=== PATIENT | female | born 1970 | race Two or more races ===

== ENCOUNTER 2025-02-26 21:10 | Emergency (ER) | payer MEDICAID, SELFPAY ==
[2025-02-26 21:10] VITALS: BMI 29.3
[2025-02-26 21:15] VITALS: BP 211/105; PULSE 87; RESP 20; TEMP 36.9; O2SAT 99
--- NOTE | 2025-02-26 21:19 | EKG_ITS ---
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
--- NOTE | 2025-02-26 21:56 | XR_ITS ---
Examination: PA chest single view TECHNIQUE: Upright PA chest single view Date and time: February 26, 2025, 10:11 PM INDICATIONS: Chest pain today FINDINGS: Normal heart size. Lungs are clear. The osseous structures are demineralized IMPRESSION: No active disease
[2025-02-26 22:22] VITALS: BP 211/105; PULSE 87
[2025-02-26] MEDS: METOPROLOL TARTRATE 25 MG TABLET PO (22:22)
[2025-02-26] MEDS: Aspirin 325 MG TABLET PO (22:22)
[2025-02-26] MEDS: DIAZEPAM 5 MG TABLET PO (22:22)
[2025-02-26 22:55] LABS: Basophils % (Auto) 0 % (0-2.5); Eosinophils # (Auto) 0.1 Thou/mm3 (0.0-0.5); Eosinophils % (Auto) 1 % (0-10); Hematocrit 43.6 % (36.0-46.0); Hemoglobin 14.7 g/dL (12.0-16.0); Immature Granulocytes % (Auto) 0 % (0-0); Immature Granulocytes Auto 0.04 Thou/mm3 (0.00-0.00); Lymphocytes # (Auto) 1.3 Thou/mm3 (1.0-4.8); Lymphocytes % (Auto) 15 % (10-50); Mean Corpuscular HGB Conc 33.7 g/dl (31.0-37.0); Mean Corpuscular Hemoglobin 29.2 pg (25.0-35.0); Mean Corpuscular Volume 87 fL (80-100); Monocytes # (Auto) 0.6 Thou/mm3 (0.0-0.8); Monocytes % (Auto) 7 % (0-12); Neutrophils # (Auto) 6.9 Thou/mm3 (1.8-7.7); Neutrophils % (Auto) 77 % (37-80); Nucleated Red Blood Cell % 0 /100 WBC (0); Platelet Count 225 Thou/mm3 (140-440); RDW Standard Deviation 40.8 fL (36.4-46.3); Red Blood Count 5.04 Miln/mm3 (4.00-5.20); White Blood Count 8.9 Thou/mm3 (3.6-11.0)
[2025-02-26 23:17] LABS: Alanine Aminotransferase 45 U/L (10-49); Albumin, Serum 4.8 gm/dL (3.5-5.0); Albumin/Globulin Ratio 1.8 (1.2-2.2); Alkaline Phosphatase 102 U/L (46-116); Anion Gap 10 (7-16); Aspartate Amino Transferase 40 U/L (0-34); BUN/Creatinine Ratio 20 Ratio (12-20); Bilirubin,Total 1.7 mg/dL (0.3-1.2); Blood Urea Nitrogen 12 mg/dL (9-23); Calcium 10.2 mg/dL (8.3-10.6); Calcium (Corrected) 10.2 mg/dL (8.5-10.1); Carbon Dioxide 27.3 mMol/L (20.0-31.0); Chloride 107 mMol/L (98-107); Creatinine (Component) 0.6 mg/dL (0.6-1.3); Estimated Creatinine Clearance 116.1 mL/min (>60); Globulin 2.6 gm/dL (2.3-3.5); Glucose 118 mg/dL (74-106); Osmolality,Calculated 287 (275-295); Partial Thromboplastin Time 28.4 Seconds (22.0-36.0); Potassium 3.3 mMol/L (3.4-5.1); Prothrombin Time 10.8 Seconds (9.0-12.2); Sodium 144 mMol/L (136-145); Total Protein 7.4 gm/dL (5.7-8.2); Troponin I < 0.020 ng/mL (0.0-0.045); eGFR > 60 See Note
[2025-02-27 01:24] VITALS: BP 179/85; PULSE 50; RESP 18; TEMP 36.8; O2SAT 96
[2025-02-27 01:43] LABS: Troponin I < 0.020 ng/mL (0.0-0.045)
--- NOTE | 2025-02-27 04:17 | PD.EDSKIN ---
ED Skin Abcess FB-RME/HPI General Chief complaint: General Adult/Misc Complain Stated complaint: SOB AFTER BEE STING/ BP 210/120 Time Seen by Provider: 02/26/25 21:55 Arrival date/time: 02/26/25 21:10 54F with history of anxiety presents to ED with SOB and elevated BP after being stung by a bee 2 hours ago. Patient also had some CP earlier, but not while in ED. Patient denies throat swelling, rash, and itching. Limitations: no limitations Related Data Allergies Allergy/AdvReac Type Severity Reaction Status Date / Time NKA Allergy Unknown Uncoded 05/08/03 19:16 No Known Allergies Allergy Unknown Uncoded 12/12/05 14:31 Review of Systems Review of Systems Systems Reviewed: All systems reviewed, normal except as documented Constitutional Constitutional: Reports system reviewed and no additional complaints, except as documented, Denies fever(s) and Denies headache(s) ENT Ears, Nose, Mouth, and Throat: Denies disequilibrium and Denies headache(s) Cardiovascular Cardiovascular: Reports system reviewed and no additional complaints, except as documented, Reports as per HPI, Reports chest pain and Reports dyspnea Respiratory Respiratory: Reports system reviewed and no additional complaints, except as documented, Denies cough and Reports dyspnea Gastrointestinal Gastrointestinal: Reports system reviewed and no additional complaints, except as documented, Denies abdominal pain, Denies nausea and Denies vomiting Neurologic Neurologic: Reports system reviewed and no additional complaints, except as documented, Denies confusion, Denies disequilibrium and Denies headache(s) Psychiatric Psychiatric: Denies confusion Past Medical History Social History SMOKING STATUS: Never smoker ED Exam General Limitations: Present no limitations General appearance: Present alert, in no apparent distress and anxious Head Head exam: Present atraumatic Eye Eye exam: Present normal appearance, PERRL and EOMI ENT ENT exam: Present normal exam, normal oropharynx and mucous membranes moist Neck Neck exam: Present normal inspection, full ROM and trachea midline Chest Chest inspection: Present normal inspection and symmetric chest wall rise Respiratory Respiratory exam: Present normal lung sounds bilaterally Cardiovascular Cardiovascular exam: Present regular rate, normal rhythm and normal heart sounds Abdominal Exam Abdominal exam: Present soft and normal bowel sounds Extremities Exam Extremities exam: Present normal inspection and full ROM Back Exam Back exam: Present normal inspection and full ROM Neurological Exam Neurological exam: Present alert, oriented X3 and CN II-XII intact Psychiatric Psychiatric exam: Present normal affect and normal mood Skin Skin exam: Present warm, dry, intact and normal color Course Quality Measures none Orders Category Date Time Status EKG (ED ONLY) *Do not use* NOW Care 02/26/25 21:19 Completed EKG (ED Only) Stat Exams 02/26/25 21:19 Draft XR chest 1V portable Stat Exams 02/26/25 21:56 Completed CBC Stat Lab 02/26/25 22:21 Completed Comprehensive Metabolic Panel Stat Lab 02/26/25 22:21 Completed Partial Thromboplastin Time Stat Lab 02/26/25 22:21 Completed Prothrombin Time with INR Stat Lab 02/26/25 22:21 Completed Troponin I Stat Lab 02/26/25 22:21 Completed Troponin I Stat Lab 02/27/25 00:50 Completed Aspirin Med 02/26/25 21:56 Discontinued 325 mg PO X1 ONE Diazepam [Valium] Med 02/26/25 21:56 Discontinued 5 mg PO X1 ONE Metoprolol Tartrate [Lopressor] Med 02/26/25 21:56 Discontinued 25 mg PO X1 ONE Vital Signs Vital signs: Vital Signs Temperature 98.4 F 02/26/25 21:15 Pulse Rate 87 02/26/25 21:15 Respiratory Rate 20 02/26/25 21:15 Blood Pressure 211/105 H 02/26/25 21:15 Pulse Oximetry (%) 99 02/26/25 21:15 Oxygen Delivery Method Room Air 02/26/25 21:15 O2 at 99% on RA and WNLs Skin / Abscess / Foreign Body MDM Narrative MDM Narrative:: 54F with history of anxiety presents to ED with SOB and elevated BP after being stung by a bee 2 hours ago. Patient also had some CP earlier, but not while in ED. Patient denies throat swelling, rash, and itching. Physical exam reveals normal WOB. RRR. Patient is afebrile, alert, but anxious. EKG is NSR with minimal non-specific ST depression. No leukocytosis. CMP unremarkable. Trop 2x normal. CXR normal. Valium improved symptoms. 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 Patient data External records reviewed:: [facility] previous records Clinical information provided by:: patient Social determinants that could affect healthcare access:: mental health Patient has the following chronic illnesses:: anxiety How is presenting disease/condition affected by chronic disease/condition?: exacerbated by Evaluation data The following diagnostics were reviewed and interpreted by me:: lab results, radiology exam(s) and EKG tracing(s) Lab and/or radiology exams considered but not ordered:: ordered Interpretation Summary: above Medications / Prescriptions Medications or Prescriptions considered but not ordered:: ordered Medication administrations:: Medication Administration History Discontinued Medications Aspirin (Aspirin 325 Mg Tablet) 325 mg PO X1 ONE Stop: 02/26/25 21:57 Last Admin: 02/26/25 22:22 Dose: 325 mg Documented By: ISA Diazepam (Diazepam 5 Mg Tablet) 5 mg PO X1 ONE Stop: 02/26/25 21:57 Last Admin: 02/26/25 22:22 Dose: 5 mg Documented By: ISA Metoprolol Tartrate (Metoprolol Tartrate 25 Mg Tablet) 25 mg PO X1 ONE Stop: 02/26/25 21:57 Last Admin: 02/26/25 22:22 Dose: 25 mg Documented By: ISA above Consultations Consultation(s) initiated? (list below): No Diagnosis Skin/Abscess Differential Diagnosis: abscess of skin or subcutaneous tissue, viral exanthem, dermatophytosis, urticaria, herpes zoster, allergic reaction to drug, cellulitis, eczema, insect bites, impetigo, contact dermatitis and other (Elevated BP w/o HTN historyf, stress reaction, bee sting reaction) Most likely diagnosis given after review of the tests above:: Elevated BP w/o HTN historyf, stress reaction, bee sting reaction Admission Indicated Admission indicated?: not indicated Admission Request Was there a request for admission?: No Disposition Plan Disposition Plan: Discharge Discharge Attestation Discharge Attestation: The patient and all family members were given an opportunity to ask questions and understood the discharge instructions. Discharge instructions specifically effects, indications for sooner follow up or return to the emergency department, and the expected course of current diagnosis. Patient condition: Stable Discharge Plan Plan Patient Disposition: HOME (Self Care) Discharge Disposition comment: Stable Prescriptions/Referrals Referrals: No Primary/Family,Physician [Primary Care Provider] - In 1 week Problem List Clinical Impression: Bee sting reaction, Stress reaction, Blood pressure elevated without history of HTN Patient/Caregiver Discharge Instructions Education Materials: ED Hypertension, To Be Confirmed Additional Instructions: Please follow-up with PCP within 24-48 hours and return immediately if symptoms worsen. See PCP for HTN diagnosis and control. 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 Veloz
== END 2025-02-27 02:27 | disposition home or self-care (01) ==
PROVIDERS: Physician Assistant; Emergency Provider Emergency Medicine
DX: T63.441A Toxic effect of venom of bees, accidental (unintentional), initial encounter (principal); F43.9 Reaction to severe stress, unspecified; R03.0 Elevated blood-pressure reading, without diagnosis of hypertension; R07.9 Chest pain, unspecified; R94.31 Abnormal electrocardiogram [ECG] [EKG]
CPT/HCPCS: 36415; 71045; 80053; 84484; 85025; 85610; 85730; 93005; 99283; A9270

== ENCOUNTER 2025-05-30 19:29 | Emergency (ER) | payer MEDICAID, SELFPAY ==
[2025-05-30 20:41] VITALS: BP 163/97; PULSE 65; RESP 19; TEMP 36.8; O2SAT 95
--- NOTE | 2025-05-30 21:17 | EDNOTE_ITS ---
Lower Extremity Injury RME/HPI General Chief Complaint: Ankle/Foot Injury Stated Complaint: RIGHT FOOT PAIN Time Seen by Provider: 05/30/25 20:58 Arrival date/time: 05/30/25 19:29 54F with no significant PMH presents to ED with 2 weeks of R foot/heel pain w/o fall/trauma. Limitations: no limitations Related Data Allergies Allergy/AdvReac Type Severity Reaction Status Date / Time NKA Allergy Unknown Uncoded 05/08/03 19:16 No Known Allergies Allergy Unknown Uncoded 12/12/05 14:31 Review of Systems Review of Systems Systems Reviewed: All systems reviewed, normal except as documented Constitutional Constitutional: Reports system reviewed and no additional complaints, except as documented, Denies fever(s) and Denies headache(s) ENT Ears, Nose, Mouth, and Throat: Denies disequilibrium and Denies headache(s) Cardiovascular Cardiovascular: Reports system reviewed and no additional complaints, except as documented, Denies chest pain and Denies dyspnea Respiratory Respiratory: Reports system reviewed and no additional complaints, except as documented, Denies cough and Denies dyspnea Gastrointestinal Gastrointestinal: Reports system reviewed and no additional complaints, except as documented, Denies abdominal pain, Denies nausea and Denies vomiting Musculoskeletal Musculoskeletal: Reports as per HPI and Reports arthralgias Neurologic Neurologic: Reports system reviewed and no additional complaints, except as documented, Denies confusion, Denies disequilibrium and Denies headache(s) Psychiatric Psychiatric: Denies confusion Past Medical History Social History SMOKING STATUS: Never smoker ED Exam General Limitations: Present no limitations General appearance: Present alert and in no apparent distress Head Head exam: Present atraumatic Eye Eye exam: Present normal appearance, PERRL and EOMI ENT ENT exam: Present normal exam, normal oropharynx and mucous membranes moist Neck Neck exam: Present normal inspection, full ROM and trachea midline Chest Chest inspection: Present normal inspection and symmetric chest wall rise Respiratory Respiratory exam: Present normal lung sounds bilaterally Cardiovascular Cardiovascular exam: Present regular rate, normal rhythm and normal heart sounds Abdominal Exam Abdominal exam: Present soft and normal bowel sounds Extremities Exam Extremities exam: Present normal inspection and full ROM Back Exam Back exam: Present normal inspection and full ROM Neurological Exam Neurological exam: Present alert, oriented X3 and CN II-XII intact Psychiatric Psychiatric exam: Present normal affect and normal mood Skin Skin exam: Present warm, dry, intact and normal color Course Quality Measures none Vital Signs Vital signs: Vital Signs Temperature 98.2 F 05/30/25 20:41 Pulse Rate 65 05/30/25 20:41 Respiratory Rate 19 05/30/25 20:41 Blood Pressure 163/97 H 05/30/25 20:41 Pulse Oximetry (%) 95 05/30/25 20:41 Oxygen Delivery Method Room Air 05/30/25 20:41 O2 at 95% on RA and WNLs Extremity Injury, Lower MDM Narrative MDM Narrative:: 54F with no significant PMH presents to ED with 2 weeks of R foot/heel pain w/o fall/trauma. Physical exam reveals unremarkable foot exam. Gait normal. Patient is afebrile, calm, and alert. 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 Patient data External records reviewed:: [facility] previous records Clinical information provided by:: patient Social determinants that could affect healthcare access:: none Patient has the following chronic illnesses:: none How is presenting disease/condition affected by chronic disease/condition?: no chronic disease Evaluation data The following diagnostics were reviewed and interpreted by me:: other (specify) (none) Lab and/or radiology exams considered but not ordered:: not ordered Interpretation Summary: n/a Medications / Prescriptions Medications or Prescriptions considered but not ordered:: not ordered Medication administrations:: n/a Consultations Consultation(s) initiated? (list below): No Diagnosis Extremity Injury, Lower Differential Diagnosis: ankle sprain and strain, acute internal derangement of knee, puncture wound of foot, fracture of toe, ankle fracture and other (foot pain) Most likely diagnosis given after review of the tests above:: foot pain Admission Indicated Admission indicated?: not indicated Admission Request Was there a request for admission?: No Disposition Plan Disposition Plan: Discharge Discharge Attestation Discharge Attestation: The patient and all family members were given an opportunity to ask questions and understood the discharge instructions. Discharge instructions specifically effects, indications for sooner follow up or return to the emergency department, and the expected course of current diagnosis. Patient condition: Stable Discharge Plan Plan Patient Disposition: HOME (Self Care) Discharge Disposition comment: Stable Problem List Clinical Impression: Foot pain Patient/Caregiver Discharge Instructions Education Materials: Understanding Plantar Fasciitis Additional Instructions: Please follow-up with PCP within 24-48 hours and return immediately if symptoms worsen. If problem persists, recommend outpatient PT and/or MRI follow-up. In the meantime, rest, use ice/heat, and/or compression. 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 Nguyen
== END 2025-05-30 21:05 | disposition home or self-care (01) ==
LOC: SERX 21:14
PROVIDERS: Emergency Provider Emergency Medicine
DX: M79.671 Pain in right foot (principal)
CPT/HCPCS: 99281